=== PATIENT | male | born 1985 | race Caucasian/White ===

== ENCOUNTER 2018-09-11 13:56 | Emergency (ER) | payer OTHER ==
[2018-09-11 14:02] VITALS: BP 124/91
[2018-09-11] MEDS ORDERED: Ketorolac INJ* 30 MG/ML 1 ML VIAL IM ONE (14:20)
--- NOTE | 2018-09-11 15:01 | ED ---
Back Pain - HPI Summary HPI Summary: 33-year-old male presents with right-sided rib injury yesterday. He states that he landed on his right ribs. He states he has pain greatest when he takes a deep breath. Denies any other injury. Denies any head injury or loss conscious. No back pain besides his chronic back pain. He states he normally takes Percocet for his pain but it is barely touching his pain. No blood in his urine. no palpitations. no chest pain. - History of Current Complaint Chief Complaint: EDBackInjuryPain Stated Complaint: FALL Time Seen by Provider: 09/11/18 14:07 Pain Intensity: 7 - Allergies/Home Medications Allergies/Adverse Reactions: Allergies Allergy/AdvReac Type Severity Reaction Status Date / Time amoxicillin Allergy Hives Verified 09/11/18 14:02 bupropion [From Wellbutrin] Allergy See Comment Verified 09/11/18 14:02 Home Medications: Home Medications oxyCODONE/Acetamin 5/325 MG* [Percocet 5/325 TAB*] 1 tab PO Q4H PRN 09/11/18 [ History Confirmed 09/11/18] PMH/Surg Hx/FS Hx/Imm Hx Endocrine/Hematology History: Denies: Hx Anticoagulant Therapy, Hx Diabetes, Hx Thyroid Disease Cardiovascular History: Denies: Hx Hypertension, Hx Pacemaker/ICD Respiratory History: Denies: Hx Asthma, Hx Chronic Obstructive Pulmonary Disease (COPD) GI History: Reports: Hx Gastroesophageal Reflux Disease - TUMS PRN History: Denies: Hx Renal Disease Musculoskeletal History: Reports: Hx Arthritis, Hx Back Problems, Other Musculoskeletal History - ganglion cyst right wrist surgery Sensory History: Denies: Hx Contacts or Glasses, Hx Hearing Aid Opthamlomology History: Denies: Hx Contacts or Glasses Neurological History: Reports: Hx Headaches, Other Neuro Impairments/Disorders - PAIN CLINIC PATIENT Denies: Hx Dementia, Hx Seizures Psychiatric History: Reports: Hx Anxiety, Hx Depression Denies: Hx Panic Disorder, Hx Substance Abuse - Surgical History Surgery Procedure, Year, and Place: BILATERAL EAR MYRINGOTOMY WITH TUBES [facility] – [place]. JUL 2013 -TURBINATE REDUCTION - IN NASAL PASSAGES D/T CHRONIC SINUSITIS AND CYST :-ENDOSCOPY WITH BALLOON THROUGH SINUS CAVITY 09/2015. 09/2015 - Rt WRIST - GANGLION CYST REMOVED Hx Anesthesia Reactions: Yes - PROPOFOL- ANXIOUS, WHOLE BODY HOT THEN COLD& WHOLE BODY SORE DAY AFTER SURGE Infectious Disease History: No Infectious Disease History: Denies: Hx Hepatitis, Hx Human Immunodeficiency Virus (HIV), Traveled Outside the [place] in Last 30 Days - Social History Alcohol Use: Weekly Alcohol Amount: 5 drinks/week Substance Use Type: Reports: None Substance Use Comment - Amount & Last Used: Percocet as prescribed Smoking Status (MU): Light Every Day Tobacco Smoker Type: Cigarettes Amount Used/How Often: 1 pack per week Have You Smoked in the Last Year: Yes Review of Systems Negative: Fever Positive: Other - rib pain. Negative: Chest Pain Positive: Shortness Of Breath. Negative: Cough All Other Systems Reviewed And Are Negative: Yes Physical Exam Triage Information Reviewed: Yes Vital Signs On Initial Exam: Initial Vitals Temp Pulse Resp BP Pulse Ox 98.5 F 103 19 124/91 96 09/11/18 14:00 09/11/18 14:00 09/11/18 14:00 09/11/18 14:00 09/11/18 14:00 Vital Signs Reviewed: Yes Appearance: Positive: Well-Appearing Skin: Positive: Warm, Dry Head/Face: Positive: Normal Head/Face Inspection Eyes: Positive: Normal, Conjunctiva Clear ENT: Positive: Pharynx normal Respiratory/Lung Sounds: Positive: Clear to Auscultation, Breath Sounds Present , Other - tenderness over right side of lower ribs Cardiovascular: Positive: Normal, RRR Abdomen Description: Positive: Nontender, Soft Bowel Sounds: Positive: Present Musculoskeletal: Positive: Normal Neurological: Positive: Normal Psychiatric: Positive: Normal Diagnostics - Vital Signs Vital Signs Temp Pulse Resp BP Pulse Ox 09/11/18 14:00 98.5 F 103 19 124/91 96 - Laboratory Lab Statement: Any lab studies that have been ordered have been reviewed, and results considered in the medical decision making process. - Radiology ribs Radiology Interpretation Completed By: Radiologist Summary of Radiographic Findings: no fx Back Pain Course/Dx - Course Course Of Treatment: 33-year-old male presents with right-sided rib injury yesterday. He states that he landed on his right ribs. He states he has pain greatest when he takes a deep breath. Denies any other injury. Denies any head injury or loss conscious. No back pain besides his chronic back pain. He states he normally takes Percocet for his pain but it is barely touching his pain. No blood in his urine. On exam tenderness over the right lower ribs. Lungs clear to auscultation. X-ray negative for fracture. discussed needs to take deep breath throughout day. should add on ibuprofen for pain. patient understand and agrees with plan. - Diagnoses Differential Diagnosis/HQI/PQRI: Positive: Fracture, Sprain, Other - contusion Provider Diagnoses: Contusion of rib on right side Discharge - Sign-Out/Discharge Documenting (check all that apply): Patient Departure - Discharge Plan Condition: Good Disposition: HOME Patient Education Materials: Rib Contusion (ED) Referrals: Agustín Grossman MD [Primary Care Provider] - Additional Instructions: Take deep breath throughout the day Take Ibuprofen or Tylenol for pain every 6 hours Follow up with primary care physician within 5 days Return to ED if develop new productive cough, fever, or any new or worsening symptoms - Billing Disposition and Condition Condition: GOOD Disposition: Home
== END 2018-09-11 16:07 | disposition home or self-care (01) ==
LOC: ED 13:56
DX: S20.20XA Contusion of thorax, unspecified, initial encounter (principal); W10.9XXA Fall (on) (from) unspecified stairs and steps, initial encounter; Y92.9 Unspecified place or not applicable; Z88.0 Allergy status to penicillin; Z88.8 Allergy status to other drugs, medicaments and biological substances; F17.210 Nicotine dependence, cigarettes, uncomplicated
CPT/HCPCS: 96372; 99282; J1885